=== PATIENT | male | born 1980 | race Caucasian/White ===

== ENCOUNTER 2022-11-28 07:53 | Outpatient (CLI) | payer BC, SELFPAY | END 2022-11-28 07:54 | disposition home or self-care (01) | LOC: NFLDREF 11:09 | PROVIDERS: PCP Family Medicine; Referring Provider Family Medicine; Visit Provider Family Medicine | DX: Z00.00 Encounter for general adult medical examination without abnormal findings (principal); Z13.6 Encounter for screening for cardiovascular disorders; Z13.9 Encounter for screening, unspecified | CPT/HCPCS: 80053; 80061 ==